=== PATIENT | female | born 1985 ===

== ENCOUNTER 2023-02-25 22:40 | Inpatient (IN) | payer OTHER ==
[~2023-02-25] VITALS: Ht 167.6 cm; Wt 97.0 kg
[2023-02-25 22:47] VITALS: BP 112/57
[2023-02-25 23:17] LABS: BASOPHILS ABSOLUTE AUTO 0.03 K/mm3 (0.00-0.23); BASOPHILS PERCENT AUTO 0 % (0-2); EOSINOPHILS ABSOLUTE AUTO 0.01 K/mm3 (0.00-0.68); EOSINOPHILS PERCENT AUTO 0 % (0-6); Hematocrit 37.4 % (33.0-51.0); Hemoglobin 12.7 g/dL (11.5-16.0); IMMATURE GRAN ABSOLUTE AUTO 0.05 K/mm3 (0.00-0.10); IMMATURE GRAN PERCENT AUTO 0 % (0-1); LYMPHOCYTES ABSOLUTE AUTO 1.05 K/mm3 (0.84-5.20); LYMPHOCYTES PERCENT AUTO 7 % (21-46); MONOCYTES ABSOLUTE AUTO 0.64 K/mm3 (0.16-1.47); MONOCYTES PERCENT AUTO 4 % (4-13); Mean Corpuscular Volume 82 fL (80-100); Mean Platelet Volume 10.8 fL (9.1-12.4); NEUTROPHILS ABSOLUTE AUTO 13.89 K/mm3 (1.96-9.15); NEUTROPHILS PERCENT AUTO 89 % (41-73); Platelet Count 197 K/mm3 (150-400); RDW Coefficient Variation 13.8 % (11.7-14.2); Red Blood Cell Count 4.54 M/mm3 (3.80-5.20); White Blood Cell Count 15.67 K/mm3 (4.00-11.30)
[2023-02-25] MEDS ORDERED: PRENATAL TABLE1 EAC2 PO (23:21)
[2023-02-26] VITALS (24 sets, daily range): BP systolic 95–155; BP diastolic 53–114
--- NOTE | 2023-02-26 09:50 | NUR ---
Pt. is awake in bed nursing her and welcomes my visit. Spouse is present. Pt. displays evidence of both relief and exhaustion as the delievery was less thna 6 hrs. previous. Listen with empathy and a calming presence. Facilitate a life review and the pivot they made from home to coming to the hospital. Pastoral school adjustment counselor is given. Other visitors arrive. Prayed with Pt. and all present. Family verbalized gratitude for the spiritual care visit.
[2023-02-26 12:22] LABS: Mean Corpuscular HGB 28.2 pg (26.0-34.0); Mean Corpuscular HGB Conc 34.3 g/dL (31.5-36.5); Mean Corpuscular Volume 82 fL (80-100); Mean Platelet Volume 10.9 fL (9.1-12.4); Platelet Count 189 K/mm3 (150-400); RDW Standard Deviation 41.1 fL (35.1-46.3); Red Blood Cell Count 4.25 M/mm3 (3.80-5.20); White Blood Cell Count 15.44 K/mm3 (4.00-11.30)
--- NOTE | 2023-02-27 06:00 | NUR ---
DISCHARGE TEACHING COMPLETED WITH PT AND , BOTH VERBALIZE UNDERSTANDING AND HAVE NO FURTHER QUESTIONS AT THIS TIME
--- NOTE | 2023-02-27 06:16 | NUR ---
PATIENT REFUSES TO COME BACK FOR FOLLOW UP APPOINTMENT
== END 2023-02-27 06:20 | disposition home or self-care (01) | DRG 807 ==
LOC: OBS 22:40 → BC 22:45 → OBS 22:56 → BC 02-26 19:25
PROVIDERS: ADMIT Registered Nurse Community Health
PROC: 10E0XZZ Delivery of Products of Conception, External Approach (ICD-10-PCS; principal; 2023-02-26)
PROC: 3E0R3BZ Introduction of Anesthetic Agent into Spinal Canal, Percutaneous Approach (ICD-10-PCS; 2023-02-26)
PROC: 00HU33Z Insertion of Infusion Device into Spinal Canal, Percutaneous Approach (ICD-10-PCS; 2023-02-26)
PROC: 10907ZC Drainage of Amniotic Fluid, Therapeutic from Products of Conception, Via Natural or Artificial Opening (ICD-10-PCS; 2023-02-26)
DX: O48.0 Post-term pregnancy (principal); Z37.0 Single live birth; O76 Abnormality in fetal heart rate and rhythm complicating labor and delivery; O69.1XX0 Labor and delivery complicated by cord around neck, with compression, not applicable or unspecified; Z3A.41 41 weeks gestation of pregnancy
CPT/HCPCS: 36415; 51702; 85025; 85027; 86850; 86900; 86901; A9270; J1885; J2210; J2590; J7120